=== PATIENT | female | born 1945 | race Hispanic/Latino ===

== ENCOUNTER 2018-06-19 12:59 | Emergency (ER) | payer MEDICARE | END 2018-06-19 14:16 | disposition home or self-care (01) | LOC: EDH 12:59 | DX: S80.02XA Contusion of left knee, initial encounter (principal); S80.01XA Contusion of right knee, initial encounter; S90.32XA Contusion of left foot, initial encounter; S90.31XA Contusion of right foot, initial encounter; G89.29 Other chronic pain; M54.9 Dorsalgia, unspecified; Z79.899 Other long term (current) drug therapy; W01.0XXA Fall on same level from slipping, tripping and stumbling without subsequent striking against object, initial encounter; Y93.89 Activity, other specified; Y92.89 Other specified places as the place of occurrence of the external cause; Y99.8 Other external cause status | CPT/HCPCS: 73562; 73630 ==

== ENCOUNTER 2020-12-23 14:45 | Emergency (ER) | payer MEDICARE ==
[~2020-12-23] VITALS: Ht 162.6 cm; Wt 72.6 kg
[2020-12-23 14:47] VITALS: BP 94/49
[2020-12-23] MEDS ORDERED: ACETAMINOPHEN 500 MG TABLET PO ONE ×2 (16:00→17:00)
[2020-12-23] MEDS ORDERED: ONDANSETRON 4MG INJ IVP ONE (16:00)
[2020-12-23] MEDS ORDERED: 0.9%NACL 1000ML 1,000 ML IV ONE ×2 (16:00→17:00)
[2020-12-23 16:29] LABS: BASOPHILS % (AUTO) 0.2 % (0.0-5.0); EOSINOPHILS % (AUTO) 0.2 % (0.0-8.0); HEMATOCRIT 34.9 % (36-48); LYMPHOCYTES % (AUTO) 19.1 % (21.0-51.0); MEAN CORPUSCULAR HEMOGLOBIN 29.4 pg (27.0-33.0); MEAN CORPUSCULAR HGB CONC 31.8 g/dL (32.0-36.0); MEAN CORPUSCULAR VOLUME 92.6 fL (79-99); MONOCYTES % (AUTO) 33.8 % (3.0-13.0); NEUTROPHILS % (AUTO) 46.3 % (40.0-77.0); PLATELET COUNT (AUTO) 66 K/uL (130-400); RED BLOOD CELL COUNT(AUTO) 3.77 MIL/uL (4.00-5.50); RED CELL DISTRIBUTION WIDTH 13.4 % (11.0-15.5); WHITE BLOOD COUNT (AUTO) 4.7 K/uL (4.8-10.8)
[2020-12-23 16:48] LABS: POTASSIUM 5.2 mmol/L (3.5-5.1)
[2020-12-23 16:53] LABS: ALBUMIN 2.8 g/dL (3.5-5.0); BILIRUBIN,TOTAL 0.4 mg/dL (0.2-1.0); TOTAL PROTEIN, SERUM 6.7 g/dL (6.0-8.3)
[2020-12-23 16:59] VITALS: BP 94/49
[2020-12-23] MEDS ORDERED: ALBUTEROL INHALER 90MCG/INH IH PRN (17:00)
[2020-12-23] MEDS ORDERED: KAYEXALATE 15GM/60ML PO ONE (17:30)
[2020-12-23] MEDS ORDERED: ALBUHFA IH (18:07)
[2020-12-23] MEDS ORDERED: FLUT1DIS IH (18:07)
[2020-12-23 18:35] VITALS: BP 106/52
== END 2020-12-23 18:43 | disposition home or self-care (01) ==
LOC: EDH 14:45
DX: U07.1 COVID-19 (principal); E87.1 Hypo-osmolality and hyponatremia; E11.65 Type 2 diabetes mellitus with hyperglycemia; N28.9 Disorder of kidney and ureter, unspecified; I10 Essential (primary) hypertension; Z79.51 Long term (current) use of inhaled steroids; Z79.899 Other long term (current) drug therapy
CPT/HCPCS: 36415; 71045; 80053; 85025; 93005; 96361 ×2; 96374; 99285; J2405; J7030